=== PATIENT | female | born 1975 | race Caucasian/White ===

== ENCOUNTER 2017-09-22 17:06 | Emergency (ER) | payer MEDICAID ==
[2017-09-22 17:34] VITALS: BP 146/95
[2017-09-22] MEDS ORDERED: Acetaminophen/HYDROcodone 325-5 MG Tab PO ONE (18:37)
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
[2017-09-22] MEDS ORDERED: HYDROmorphone 0.5 MG/0.5 ML Syringe IM ONE (19:10)
[2017-09-22] MEDS ORDERED: Bacitracin Oint 1 GM U/D Packet TOP ONE (19:36)
--- NOTE | 2017-09-23 08:49 | CR ---
Cervical Spine Min 4V CLINICAL HISTORY: Neck pain FINDINGS: The vertebral body heights are intact. The disc spaces are maintained. There is no signific ant spondylosis. There is some reversal of the normal cervical lordosis. IMPRESSION: Straightening of the cervical lordosis suggests basilar No fracture or subluxation
--- NOTE | 2017-09-23 08:50 | CR ---
Elbow Min 3V Lt CLINICAL HISTORY: Left elbow swelling FINDINGS: No acute fracture or dislocation is noted. The fat pads are in normal position. There is so ft tissue swelling over the olecranon. Articular surfaces are smooth. Impression: Moderate focal swelling over the olecranon process. This this could represent hematoma or olecranon bursitis. Clinical correlation necessary
== END 2017-09-22 20:05 | disposition home or self-care (01) ==
LOC: JP.ED 17:06
DX: S50.02XA Contusion of left elbow, initial encounter (principal); S00.83XA Contusion of other part of head, initial encounter; G40.909 Epilepsy, unspecified, not intractable, without status epilepticus; I10 Essential (primary) hypertension; E11.9 Type 2 diabetes mellitus without complications; F17.210 Nicotine dependence, cigarettes, uncomplicated; Z88.8 Allergy status to other drugs, medicaments and biological substances; Z79.899 Other long term (current) drug therapy; Z79.4 Long term (current) use of insulin; W22.8XXA Striking against or struck by other objects, initial encounter
CPT/HCPCS: 70486; 72050; 72050-26; 73080-26-LT; 73080-LT; 96372; 99284-25; A9270-GY; J1170

== ENCOUNTER 2018-10-08 14:29 | Emergency (ER) | payer MEDICAID ==
[2018-10-08 14:36] VITALS: BP 158/80
[2018-10-08] MEDS ORDERED: Sodium Chloride 0.9% 1,000 ML IV SCH (15:00)
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
== END 2018-10-08 16:38 | disposition home or self-care (01) ==
LOC: JP.ED 14:29
DX: E11.641 Type 2 diabetes mellitus with hypoglycemia with coma (principal); I10 Essential (primary) hypertension; F31.9 Bipolar disorder, unspecified; F41.9 Anxiety disorder, unspecified; F17.210 Nicotine dependence, cigarettes, uncomplicated; Z79.4 Long term (current) use of insulin; Z91.09 Other allergy status, other than to drugs and biological substances; Z88.8 Allergy status to other drugs, medicaments and biological substances; Z91.018 Allergy to other foods
CPT/HCPCS: 36415; 80048; 96360; 99284; J7030

== ENCOUNTER 2019-02-14 | Emergency (ER) | payer MEDICAID, OTHER ==
[2019-02-14 00:26] VITALS: PULSE 80
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
[2019-02-14] MEDS ORDERED: Ondansetron 4 MG Tab.DIS PO PRN (00:47)
[2019-02-14] MEDS ORDERED: LORazepam 1 MG Tab PO PRN (00:49)
[2019-02-14] MEDS ORDERED: levETIRAcetam 500 MG/5 ML Solution ML 473 ml Bottle PO SCH (01:00)
[2019-02-14] MEDS ORDERED: levETIRAcetam 250 MG Tab PO ONE (01:03)
[2019-02-14 01:59] VITALS: BP 138/90
== END 2019-02-14 02:07 ==
LOC: JP.ED
DX: R51 Headache (principal); I10 Essential (primary) hypertension; E11.9 Type 2 diabetes mellitus without complications; J45.909 Unspecified asthma, uncomplicated; F41.9 Anxiety disorder, unspecified; F32.9 Major depressive disorder, single episode, unspecified; Z79.4 Long term (current) use of insulin; F17.210 Nicotine dependence, cigarettes, uncomplicated; Z79.899 Other long term (current) drug therapy; Z88.8 Allergy status to other drugs, medicaments and biological substances; Z91.018 Allergy to other foods; Z91.048 Other nonmedicinal substance allergy status
CPT/HCPCS: 36415; 80048; 81001; 83690; 84703; 85025; 99284; A9270

== ENCOUNTER 2020-01-17 20:48 | Emergency (ER) | payer MEDICAID ==
[2020-01-17 21:04] VITALS: BP 148/91; PULSE 106
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
[2020-01-17] MEDS: Ketorolac 30 MG/ML SDV IM ONE (21:26)
--- NOTE | 2020-01-18 08:59 | CR ---
Forearm 2V Rt CLINICAL HISTORY: Injury FINDINGS: There is no acute fracture within the forearm. IMPRESSION: Negative right forearm.
== END 2020-01-17 22:09 | disposition home or self-care (01) ==
LOC: JP.ED 20:48
DX: S50.11XA Contusion of right forearm, initial encounter (principal); I10 Essential (primary) hypertension; J45.909 Unspecified asthma, uncomplicated; E11.9 Type 2 diabetes mellitus without complications; F17.210 Nicotine dependence, cigarettes, uncomplicated; Z98.890 Other specified postprocedural states; Z90.710 Acquired absence of both cervix and uterus; Z91.018 Allergy to other foods; Z88.8 Allergy status to other drugs, medicaments and biological substances; Z91.048 Other nonmedicinal substance allergy status; Z79.4 Long term (current) use of insulin; W20.8XXA Other cause of strike by thrown, projected or falling object, initial encounter; Y92.009 Unspecified place in unspecified non-institutional (private) residence as the place of occurrence of the external cause
CPT/HCPCS: 73090; 96372; 99283; J1885

== ENCOUNTER 2020-10-07 02:50 | Emergency (ER) | payer MEDICAID ==
[2020-10-07 03:17] VITALS: BP 126/68; PULSE 93
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
--- NOTE | 2020-10-07 03:50 | CRLCT ---
For Patients: As a result of the Century Cures Act, medical imaging exams and procedure reports are released immediately into your electronic medical record. You may view this report before your referring provider. If you have questions, please contact your health care provider. Indication: Headache, confusion, possible trauma, history of seizures Technique: Nonenhanced axial CT imaging through the head. Sagittal and coronal reconstructions are provided. Comparison: CT head without contrast 03/28/2016 Findings: There is no intracranial hemorrhage, edema, or mass effect. There is normal attenuation of the brain parenchyma. The ventricles are normal in size. The basal cisterns are patent. The calvarium is intact. The visualized paranasal sinuses and mastoid air cells are aerated. Impression: No acute intracranial process. Please note that all CT scans at this facility use dose modulation, iterative reconstruction, and/or weight-based dosing when appropriate to reduce radiation dose to as low as reasonably achievable. Dictated by Eden Burks MD @ 10/07/2020 3:49:[address] Eden Burks @ Oct 07 2020 3:49AM
[2020-10-07] MEDS ORDERED: Ketorolac 30 MG/ML SDV IVPUSH ONE (03:57)
[2020-10-07] MEDS ORDERED: Ketorolac 30 MG/ML SDV ONE (03:59)
== END 2020-10-07 04:18 | disposition home or self-care (01) ==
LOC: JP.ED 02:50
DX: R41.0 Disorientation, unspecified (principal); R51.9 Headache, unspecified; F15.10 Other stimulant abuse, uncomplicated; I10 Essential (primary) hypertension; J45.909 Unspecified asthma, uncomplicated; E11.9 Type 2 diabetes mellitus without complications; Z91.018 Allergy to other foods; Z88.8 Allergy status to other drugs, medicaments and biological substances; Z91.048 Other nonmedicinal substance allergy status; Z79.4 Long term (current) use of insulin; Z86.73 Personal history of transient ischemic attack (TIA), and cerebral infarction without residual deficits
CPT/HCPCS: 36415; 70450; 80053; 80305; 81001; 83690; 83735; 85025; 96374; 99283; 99285; J1885

== ENCOUNTER 2021-11-04 08:09 | Emergency (ER) | payer MEDICAID ==
[2021-11-04] MEDS ORDERED: fentaNYL 100 MCG/2 ML SDV IVPUSH ONE (08:58)
[2021-11-04] MEDS ORDERED: Ondansetron 4 MG/2 ML SDV IVPUSH ONE (08:58)
[2021-11-04] MEDS ORDERED: Sodium Chloride 0.9% 1,000 ML IV STA (09:04)
[2021-11-04] MEDS ORDERED: Sodium Chloride 0.9% 10 ML Syringe FLUSH PRN (09:04)
[2021-11-04 09:54] LABS: ESTIMATED GFR 93 mL/min (>60); TROPONIN I HIGH SENSITIVITY 22.2 pg/mL (<=60.3)
[2021-11-04] MEDS ORDERED: Sodium Chloride 0.9% 100 ML IV ONE (10:38)
[2021-11-04] MEDS ORDERED: Sodium Chloride 0.9% 10 ML Syringe FLUSH ONE (10:38)
[2021-11-04] MEDS ORDERED: Iopamidol 612 MG/ML 100 ML Bottle IV SCH (10:45)
[2021-11-04] MEDS ORDERED: HYDROmorphone 1 MG/ML Syringe IVPUSH ONE (11:04)
[2021-11-04] MEDS ORDERED: HYDROmorphone 0.5 MG/0.5 ML Syringe IVPUSH PRN (11:31)
[2021-11-04] MEDS ORDERED: Lactated Ringers 1,000 ML IV ONE (11:34)
[2021-11-04] MEDS ORDERED: LORazepam 2 MG/ML SDV IVPUSH ONE (11:56)
[2021-11-04 13:35] VITALS: BP 142/93; PULSE 82
== END 2021-11-04 14:00 ==
LOC: JP.ED 08:09
DX: K56.699 Other intestinal obstruction unspecified as to partial versus complete obstruction (principal); I10 Essential (primary) hypertension; E11.9 Type 2 diabetes mellitus without complications; F17.210 Nicotine dependence, cigarettes, uncomplicated; Z91.018 Allergy to other foods; Z88.8 Allergy status to other drugs, medicaments and biological substances; Z91.048 Other nonmedicinal substance allergy status; Z79.4 Long term (current) use of insulin; Z90.49 Acquired absence of other specified parts of digestive tract; Z90.710 Acquired absence of both cervix and uterus; Z20.822 Contact with and (suspected) exposure to COVID-19
CPT/HCPCS: 36415; 74177; 80053; 83605; 83690; 84145; 84484; 84703; 85025; 86140; 87635; 96361; 96374; 96375; 99284; 99285; J1170; J2405; J3010; J3490; J7030; J7120; Q9967; U0002

== ENCOUNTER 2023-03-17 18:52 | Emergency (ER) | payer MEDICAID ==
[2023-03-17 19:54] VITALS: BP 142/92; PULSE 103
== END 2023-03-17 22:17 | disposition home or self-care (01) ==
LOC: JP.ED 18:52
DX: S22.42XA Multiple fractures of ribs, left side, initial encounter for closed fracture (principal); I10 Essential (primary) hypertension; J45.909 Unspecified asthma, uncomplicated; E11.9 Type 2 diabetes mellitus without complications; Z86.73 Personal history of transient ischemic attack (TIA), and cerebral infarction without residual deficits; F17.210 Nicotine dependence, cigarettes, uncomplicated; Z88.4 Allergy status to anesthetic agent; Z91.018 Allergy to other foods; Z88.8 Allergy status to other drugs, medicaments and biological substances; Z91.048 Other nonmedicinal substance allergy status; Z79.4 Long term (current) use of insulin; W18.2XXA Fall in (into) shower or empty bathtub, initial encounter
CPT/HCPCS: 71101-26-LT; 71101-LT; 99283

== ENCOUNTER 2023-04-27 08:40 | Emergency (ER) | payer MEDICAID ==
[2023-04-27 08:55] VITALS: BP 132/69; PULSE 92
[2023-04-27 10:05] LABS: CORONAVIRUS COVID-19 NAA NEGATIVE (NEGATIVE); INFLUENZA A NAA NEGATIVE (NEGATIVE); INFLUENZA B NAA NEGATIVE (NEGATIVE); RESPIRATORY SYNCYTIAL VIR NAA NEGATIVE (NEGATIVE)
== END 2023-04-27 11:47 ==
LOC: JP.ED 08:40
DX: J44.1 Chronic obstructive pulmonary disease with (acute) exacerbation (principal); B34.9 Viral infection, unspecified; S22.42XD Multiple fractures of ribs, left side, subsequent encounter for fracture with routine healing; F17.210 Nicotine dependence, cigarettes, uncomplicated; I10 Essential (primary) hypertension; E11.9 Type 2 diabetes mellitus without complications; Z79.4 Long term (current) use of insulin; Z20.822 Contact with and (suspected) exposure to COVID-19; Z88.8 Allergy status to other drugs, medicaments and biological substances; Z88.0 Allergy status to penicillin; Z91.048 Other nonmedicinal substance allergy status; Z91.018 Allergy to other foods
CPT/HCPCS: 0241U; 71046; 99284

== ENCOUNTER 2024-07-28 17:51 | Emergency (ER) | payer MEDICAID ==
[2024-07-28 18:34] LABS: BASOPHILS ABSOLUTE AUTO 0.07 K/uL (0.00-0.10); BASOPHILS PERCENT AUTO 0.7 % (0.1-1.3); EOSINOPHILS ABSOLUTE AUTO 0.21 K/uL (0.00-0.40); HEMATOCRIT 41.1 % (34.3-46.0); HEMOGLOBIN 14.5 g/dL (11.2-15.5); IMMATURE GRAN ABSOLUTE AUTO 0.03 K/uL (0.00-0.23); IMMATURE GRAN PERCENT AUTO 0.3 % (0.0-0.7); LYMPHOCYTES ABSOLUTE AUTO 1.92 K/uL (0.8-3.3); LYMPHOCYTES PERCENT AUTO 18.6 % (11.4-47.7); MEAN CORPUSCULAR HGB CONC 35.3 g/dL (31.6-35.5); MEAN CORPUSCULAR VOLUME 87.8 fL (81.4-99.0); MONOCYTES ABSOLUTE AUTO 0.67 K/uL (0.20-0.90); MONOCYTES PERCENT AUTO 6.5 % (3.3-12.6); NEUTROPHILS ABSOLUTE AUTO 7.44 K/uL (1.0-7.6); NEUTROPHILS PERCENT AUTO 71.9 % (40.0-78.1); PLATELET COUNT,PLT 374 K/uL (130-375); RED BLOOD CELL COUNT 4.68 M/uL (3.77-5.24); WHITE BLOOD CELL COUNT,WBC 10.3 K/uL (3.2-11.0)
[2024-07-28 18:41] LABS: C-REACTIVE PROTEIN 6.03 mg/dL (<0.50); CALCIUM 9.4 mg/dL (8.5-10.1); CREATININE 0.7 mg/dL (0.6-1.0); EST CRCL DRUG DOSING (CG) 89.4 mL/min
[2024-07-28] MEDS: Lidocaine 1% with EPINEPHrine 1:100,000 20 ML MDV INJECT ONE (19:59)
[2024-07-28 22:11] VITALS: BP 140/85; PULSE 104
== END 2024-07-28 22:07 | disposition home or self-care (01) ==
LOC: JP.ED 17:51
DX: L03.116 Cellulitis of left lower limb (principal); L02.416 Cutaneous abscess of left lower limb; I10 Essential (primary) hypertension; E11.9 Type 2 diabetes mellitus without complications; F17.210 Nicotine dependence, cigarettes, uncomplicated; Z91.018 Allergy to other foods; Z91.048 Other nonmedicinal substance allergy status; Z88.8 Allergy status to other drugs, medicaments and biological substances; Z79.4 Long term (current) use of insulin; Z79.899 Other long term (current) drug therapy; Z86.73 Personal history of transient ischemic attack (TIA), and cerebral infarction without residual deficits
CPT/HCPCS: 10060; 36415; 80048; 85025; 86140; 87070; 87077; 87205; 99283-25; 99284; J2004

== ENCOUNTER 2025-02-11 14:12 | Emergency (ER) | payer MEDICAID ==
[2025-02-11] MEDS: Alum Hydrox/Mag Hydrox/Simeth 15 ML, Lidocaine 2% 15 ML PO ONE (16:07)
[2025-02-11] MEDS: Ondansetron 4 MG Tab.DIS PO ONE (16:07)
[2025-02-11 16:12] LABS: PLATELET COUNT,PLT 320 K/uL (130-375); RED BLOOD CELL COUNT 4.95 M/uL (3.77-5.24); WHITE BLOOD CELL COUNT,WBC 6.3 K/uL (3.2-11.0)
[2025-02-11 16:34] LABS: ALANINE AMINOTRANSFERASE,ALT 18 U/L (12-78); ASPARTATE AMNIOTRANSFERASE,AST 10 U/L (15-37); BILIRUBIN TOTAL 0.3 mg/dL (0.2-1.0); BLOOD UREA NITROGEN,BUN 12 mg/dL (7-18); CARBON DIOXIDE,CO2 29 mmol/L (21-32); CHLORIDE,CL 98 mmol/L (100-108); CREATININE 0.5 mg/dL (0.6-1.0); EST CRCL DRUG DOSING (CG) 128.46 mL/min; ESTIMATED GFR 116 mL/min (>60); GLUCOSE RANDOM 308 mg/dL (74-106); POTASSIUM,K 4.0 mmol/L (3.6-5.2); PROTEIN TOTAL,TP 7.2 g/dL (6.4-8.2); SODIUM,NA 134 mmol/L (140-148)
[2025-02-11 16:36] LABS: A/G RATIO 1.0 (1.2-2.2); TROPONIN I HIGH SENSITIVITY 31.3 pg/mL (<=60.3)
[2025-02-11 16:48] LABS: ATYPICAL LYMPHOCYTES FEW; BAND ABSOLUTE MAN 0.19 K/uL; BAND PERCENT MAN 3 % (5-11); BASOPHILS ABSOLUTE MAN 0.19 K/uL (0.00-0.10); BASOPHILS PERCENT MAN 3 % (0-1); EOSINOPHILS ABSOLUTE MAN 0.19 K/uL (0.00-0.40); EOSINOPHILS PERCENT MAN 3 % (2-4); LYMPHOCYTES ABSOLUTE MAN 2.27 K/uL (0.8-3.3); LYMPHOCYTES PERCENT MAN 36 % (24-44); METAMYELOCYTE ABSOLUTE MAN 0.13 K/uL; METAMYELOCYTE PERCENT MAN 2 %; MONOCYTES ABSOLUTE MAN 0.19 K/uL (0.20-0.90); MONOCYTES PERCENT MAN 3 % (2-6); NEUTROPHILS ABSOLUTE MAN 3.15 K/uL (1.0-7.6); SEG NEUTROPHILS PERCENT MAN 50 % (36-66)
[2025-02-11 18:01] VITALS: BP 138/98; PULSE 90
== END 2025-02-11 18:01 | disposition home or self-care (01) ==
LOC: JP.ED 14:12
DX: K85.80 Other acute pancreatitis without necrosis or infection (principal); R91.1 Solitary pulmonary nodule; I10 Essential (primary) hypertension; J45.909 Unspecified asthma, uncomplicated; E11.9 Type 2 diabetes mellitus without complications; Z90.49 Acquired absence of other specified parts of digestive tract; Z90.710 Acquired absence of both cervix and uterus; Z88.8 Allergy status to other drugs, medicaments and biological substances; Z91.018 Allergy to other foods; Z79.4 Long term (current) use of insulin; Z79.899 Other long term (current) drug therapy
CPT/HCPCS: 36415; 74176; 80053; 83605; 83690; 84484; 85025; 86140; 86618; 87468; 87469; 87484; 87798; 99284; J3490; Q0162; A9270-GY